=== PATIENT | male | born 1970 | race Caucasian/White ===

== ENCOUNTER → 2020-02-03 08:25 | Outpatient (BNVA) | payer OTHER, SELFPAY | PROVIDERS: PCP Internal Medicine; Visit Provider Anesthesiology | DX: M96.1 Postlaminectomy syndrome, not elsewhere classified (principal); M54.16 Radiculopathy, lumbar region; G89.4 Chronic pain syndrome; Z79.891 Long term (current) use of opiate analgesic | CPT/HCPCS: 99214 ==

== ENCOUNTER → 2020-02-17 09:36 | Outpatient (BNVA) | payer OTHER, SELFPAY | PROVIDERS: Visit Provider Anesthesiology | DX: M96.1 Postlaminectomy syndrome, not elsewhere classified (principal); G89.4 Chronic pain syndrome; M54.16 Radiculopathy, lumbar region; Z79.891 Long term (current) use of opiate analgesic | CPT/HCPCS: 99212 ==

== ENCOUNTER → 2020-03-16 09:39 | Outpatient (BNVA) | payer OTHER, SELFPAY | PROVIDERS: Visit Provider Anesthesiology | DX: M96.1 Postlaminectomy syndrome, not elsewhere classified (principal); M54.16 Radiculopathy, lumbar region; G89.4 Chronic pain syndrome; Z79.891 Long term (current) use of opiate analgesic | CPT/HCPCS: 99212 ==

== ENCOUNTER → 2020-04-13 09:34 | Outpatient (BNVA) | payer OTHER, SELFPAY | PROVIDERS: Visit Provider Anesthesiology | DX: M96.1 Postlaminectomy syndrome, not elsewhere classified (principal); M54.16 Radiculopathy, lumbar region; G89.4 Chronic pain syndrome; Z79.891 Long term (current) use of opiate analgesic | CPT/HCPCS: 99212 ==

== ENCOUNTER 2020-05-05 07:50 | Outpatient (RCR) | payer OTHER, SELFPAY | END 2020-06-11 23:55 | disposition home or self-care (01) | LOC: HO.PAOS 07:50 | PROVIDERS: Referring Provider Anesthesiology; Visit Provider Counselor | DX: F43.22 Adjustment disorder with anxiety (principal) | CPT/HCPCS: 90791 ==

== ENCOUNTER 2020-06-09 07:22 | Day surgery (SDC) | payer OTHER, SELFPAY ==
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
--- NOTE | ~2020-06-09 | FL_ITS ---
EXAMINATION: XR FLUOROSCOPY WITH IMAGES CLINICAL INFORMATION: Spinal stim trial COMPARISON: None. TECHNIQUE: Fluoroscopy performed by . Fluoroscopy time: 4.4 minutes DAP: 30.5 mGycm2 Images: 2 FINDINGS: FINDINGS: Intraoperative fluoroscopy was provided for use by Dr. Rollins. A radiologist was not present during imaging. Today's dictation is only for administrative purposes to document intraoperative fluoroscopy. FL/FL guidance in OR IMPRESSION: Intraoperative fluoroscopy provided for use by Dr. Rollins. Please see procedure note for details findings.
--- NOTE | 2020-06-09 07:39 | P.HPSUR_ITS ---
Pre-Procedural Eval Section B Chief Complaint: postlaminectomy syndrome Details of Present Illness: postlaminectomy syndrome Relevant Family History (Specify if Yes): No Relevant Social History: None Present Medications: see Short Stay Collaborative assessment Medical History: Significant History History of Previous Operations: Relevant previous surgery/procedure and date(s) Allergies: Allergies Allergy/AdvReac Type Severity Reaction Status Date / Time walnut Allergy unknown Verified 02/03/20 08:59 bee sting Allergy Unknown unknown Uncoded 02/03/20 08:59 Pineapple Flavor Allergy Unknown unknown Uncoded 02/03/20 08:59 Review of Systems Sugical H&P ROS: Negative: Constitution, Cardiovascular, Respiratory, Neurological, Psychiatric, Hem-Onc, Allergic/Immunologic, Gastrointestinal, Genitourinary, Musculoskeletal, Integumentary, Endocrine and Eyes/E ars/Nose/Throat Exam Surgical H&P Exam: Normal: HEENT, Normal: Heart, Normal: Lungs, Normal: Extremities, Normal: Abdomen, Normal: Skin and Normal: Neurological Plan Diagnosis/Plan: Unchanged I have reviewed the history and physical and performed a pertinent physical examination on my patient. No changes have occurred unless specified.
[2020-06-09 07:46] VITALS: BP 133/90; PULSE 79; RESP 16; TEMP 36.3; O2SAT 97; BMI 32.2
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
[2020-06-09 12:10] VITALS: BP 128/92; PULSE 75; RESP 14; TEMP 36.2; O2SAT 98
--- NOTE | 2020-06-09 12:15 | P.BOP_ITS ---
Brief Operative Note Date of Service: 06/09/20 Pre-op diagnosis: Postlaminectomy syndrome Post-op diagnosis: same Procedure: Trial of spinal cord stimulator [employer] Implants: None Surgeon: Keagan Rollins MD Anesthesia: MAC Estimated blood loss (mL): 7 Condition: stable Disposition: PACU
--- NOTE | 2020-06-09 12:16 | W.PM.OPN ---
Operative Note Operative Note Date of Service: 06/09/20 Narrative: Narrative: After obtaining informed consent the patient was brought to the operating room, HE was positioned prone on operating table, [employer] [employer] monitors were applied and patient was deeply sedated. The patient was taken inside of the operating room where she was positioned prone operating table. Time-out was performed delineating correct site, side, the nature of the procedure, patient's allergy, preoperative antibiotic if needed. All operating room staff was participating in OR time-out procedure. Patient's entire back was prepped with ChloraPrep twice and draped with full body fenestrated drape. Sterilely draped C-arm was brought over operating field and sqare picture of L1 L2 vertebrae as were demonstrated on the screen. Attention FIRST was concentrated on the left L1-L2 epidural interspace. The location of the projection of the right pedicle center of the L3 vertebra was found on the skin using C-arm. This location was injected with mixture of lidocaine 2% and Marcaine 0.5% 5 cc. After that 11 blade was used to make a meenakshi on the skin. Ten cm 14 gauge curved introducer epidural needle was inserted through the meenakshi and advanced to L1-L2 epidural interspace. The advancement of the needle was performed on anterior posterior and lateral views. Guitar wire and loss of resistance technique were used to locate epidural space. When guitar wire was spread in the epidural fashion, epidural lead was inserted through the skin and it was advanced to T8 position strictly at THE MIDLINE. After that location of the projection of the LEFT pedicle center of the L3 vertebra was found on the skin using C-arm. This location was injected with mixture of lidocaine 2% and Marcaine 0.5% 5 cc. After that 11 blade was used to make a meenakshi on the skin. Ten cm 14 gauge curved introducer epidural needle was inserted through the meenakshi and advanced to L1-L2 epidural interspace. The advancement of the needle was performed on anterior posterior and lateral views. Guitar wire and loss of resistance technique were used to locate epidural space. When guitar wire was spread in the epidural fashion, epidural lead was inserted through the needle and advanced to the T8 position slightly left to the midline. At this moment the patient was awaken and the epidural leads were connected to the testing device. The patient reported stimulation corresponding to his pain. After satisfactory position of the leads were established the needles were withdrawn, the stylette wires were removed from the epidural leads. The anchoring devices were dislodged on the leads and advanced to the level of the skin. The anchoring devices were sutured with two 0-0 silk sutures to the skin of the patient. The leads were connected to testing device. Bacitracin ointment was applied to the entrance point of bilateral needles. Sterile dressing was applied to the patient's back. The testing device was also glued to the patient's back. Upon completion of the procedure the patient was taken to PACU where HE recovered and UNEVENTFULLY, HE WENT HOME WITHOUT IMMEDIATE COMPLICATIONS.
[2020-06-09 12:25] VITALS: BP 126/86; PULSE 76; RESP 16; O2SAT 97
[2020-06-09 12:40] VITALS: BP 128/89; PULSE 75; RESP 16; O2SAT 97
== END 2020-06-09 13:48 | disposition home or self-care (01) ==
PROVIDERS: Visit Provider Anesthesiology
PROC: (CPT 63650; principal; 2020-06-09 09:00)
DX: M96.1 Postlaminectomy syndrome, not elsewhere classified (principal); M54.16 Radiculopathy, lumbar region; G89.4 Chronic pain syndrome; Z79.891 Long term (current) use of opiate analgesic; I10 Essential (primary) hypertension; F32.9 Major depressive disorder, single episode, unspecified; Z87.828 Personal history of other (healed) physical injury and trauma
CPT/HCPCS: 63650 ×2; C1778; C1897; J0690; J1100; J2250; J2405; J3010

== ENCOUNTER → 2020-06-15 12:54 | Outpatient (BNVA) | payer OTHER, SELFPAY | PROVIDERS: Visit Provider Anesthesiology | DX: M96.1 Postlaminectomy syndrome, not elsewhere classified (principal); M54.16 Radiculopathy, lumbar region; G89.4 Chronic pain syndrome; Z79.891 Long term (current) use of opiate analgesic | CPT/HCPCS: 99212 ==

== ENCOUNTER 2025-01-28 14:31 | Outpatient (AMB) | payer OTHER, SELFPAY ==
--- OUTSIDE RECORDS SUMMARY | 2025-01-27 13:30 | XMS_ITS | Encounter Summary ---
Author Organization [employer] Address [address] [place] [address] Care Team Providers Care Millwright Apprentice Name Role Phone Nevin Cox Primary Care Provider + Reason for Visit * Reason Comments 48 Hour Holter Monitor * Cardiac Stress Testing (Routine) - Authorized Specialty Diagnoses / Procedures Referred By Contac t Referred To Contact Cardiology Diagnoses Syncope, unspecified syncope type Procedures Cardiac holter monitor (<= 48 hours) PA ECG EXTERNAL UP TO 48 HOURS RECORDING PA ECG EXTERNAL < 48 HOURS CONTINUOUS RECORDING/STORAGE R&I BY A PHYS/QHP PA EXTERNAL ECG UP TO 48 HRS INCL RECORDING SCANNING ANLYS W REPORT David Obregon MD Phone: tel: fax: [facility] Referral ID Status Reason Start Date Expiration Date V isits Requested Visits Authorized [id number] Authorized 01/12/2025 01/12/2026 1 1 Encounter Details Date Type Department Care Team (Latest Contact Info) Description 01/27/2025 1:30 PM EDT Ancillary Procedure [facility] - [address] [place] [address] Syncope, unspecified syncope type Social History Tobacco Use Types Packs/Day Years Used Date Smoking Tobacco: Former Smokeless Tobacco: Never Alcohol Use Standard Drinks/Week Comments Yes 0 (1 standard drink = 0.6 oz pur e alcohol) twice per month couple drinks Housing Instability Answer Date Recorde d Are you worried that in the next 2 months you may not have stable housing? Yes 01/03/2025 Food Access & Nutrition Answer Date Rec orded Do you have access to a vari ety of food including fruits and vegetables? Yes 01/03/2025 Access to Healthcare Answer Date Record ed Within the last 3 months, ho w many times did you visit the emergency department for your medical care? 2 01/03/2025 Health Literacy Answer Date Recorded How often do you need to hav e someone help you when you read instructions, pamphlets, or other written material from your doctor or pharmacy? Rarely 01/03/2025 Caregiver: How often do you need to have someone help you when you read instructions, pamphlets, or other written material from your doctor or pharmacy? Not on file 01/03/2025 Financial Risk Answer Date Recorded How hard is it for you to pa y for the very basics like food, housing, medical care, and air conditioning / heating? Hard 01/03/2025 Transportation Answer Date Recorded Has the lack of transportati on kept you from meetings, work, or from getting things needed for daily living? Yes Has the lack of transportati on kept you from medical appointments or from getting medications? Yes 01/03/2025 Social Isolation Answer Date Recorded How often do you feel lonely or isolated from th ose around you? Often 01/03/2025 Food Risk Answer Date Recorded Within the past 12 months we worried whether our food would run out before we got money to buy more. Often true 01/03/2025 Within the past 12 months th e food we bought just didn't last and we didn't have money to get more. Often true 01/03/2025 Dependent Care Answer Date Recorded Do you need help finding or paying for care for your loved ones. For example, child care coordinator or elderly care for an older adult? No 01/03/2025 Education Answer Date Recorded Do you think completing more education or training, like finishing a GED, going to college, or learning a trade, would be helpful for you? No 01/03/2025 Employment and Income Answer Date Recor ded During the last four weeks, have you been actively looking for work? Yes 01/03/2025 Living Situation Answer Date Recorded What is your living situation? 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 on file Not on file Not on file documented as of this encounter Plan of Treatment Upcoming Encounters Date Type Department Care Team (Late st Contact Info) Description 02/01/2025 9:00 AM EDT Ancillary Procedure [facility] - [address] [place] [address] Pending Results Name Type Priority Associated Diagnoses Date /Time Cardiac holter monitor (<= 48 hours) Cardiac Services Routine Syncope, unspecified syncope type 01/27/2025 1:16 PM EDT documented as of this encounter Visit Diagnoses Diagnosis Syncope, unspecified syncope type documented in this encounter Additional Health Concerns Assessment Noted Time PHQ-9 Depression Total Score: 19 025 4:24 PM EDT documented as of this encounter Care Teams Millwright Apprentice Relationship Specialty Start Date End Date Nevin Cox PA [address] [place] [address] PCP - General 11/06/23 documented as of this encounter
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
[2025-01-28 14:42] VITALS: BP 175/109; PULSE 106; O2SAT 97; BMI 31.8
[2025-01-28 14:44] VITALS: BP 170/103
--- OUTSIDE RECORDS SUMMARY | 2025-01-28 17:01 | XMS_ITS | Encounter Summary ---
Author Organization 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 Name Role Phone Pcp, Not Required Primary Care Provider Unavaila ble Encounter Details Date Type Department Care Team (Late st Contact Info) Description 05/14/2020 Ophth Exam [facility] [place] [facility] [address] [place] [address] Vasyl Alexandra MD [email or web address] Social History Tobacco Use Types Packs/Day Years Used Date Smoking Tobacco: Former Cigarettes Q uit: 05/14/1997 Smokeless Tobacco: Never Alcohol Use Standard Drinks/Week Comments Not Currently 0 (1 standard drink = 0.6 oz pur e alcohol) Sex and Gender Information Value Date Recorded Sex Assigned at Not on file Legal Sex Male 11:47 AM EST Gender Identity Not on file Sexual Orientation Not on file documented as of this encounter Functional Status * Calculated C-SSRS Risk Score (Lifetime/Recent) Answer Date of Assessment Author No Risk Indicated 05/14/2020 12:13 PM Atiya Murcia RN * Archer Suicide Severity Rating Scale (Screener/Recent Self-Report) Question Answer Date of Assessment Author 1. Wish to be (Past 1 Month) No 05/14/2020 12:13 PM Brad Velasco RN 2. Non-Specific Active Suici dulce maria Thoughts (Past 1 Month) No 05/14/2020 12:13 PM Wayne Velasco RN 6. Suicidal Behavior (Lifetime) No 12:13 PM EST Fabiana, Atiya, RN documented as of this encounter Plan of Treatment Not on file documented as of this encounter Visit Diagnoses Not on filedocumented in this encounter Care Teams Welding Pantograph Machine Operator Relationship Specialty Start Date End Date Pcp, Not Required [address] [place] [id number] PCP - General 05/14/20 documented as of this encounter Additional Source Comments The information contained in this document represents components of the legal health record. It is not the complete legal health record.[facility]
--- OUTSIDE RECORDS SUMMARY | 2025-01-28 17:01 | XMS_ITS | Clinical Summary ---
Author Organization [facility] Address [address] [place] [phone] Care Team Providers Care Store Stock Associate Name Role Phone Galindo Jimenez MD Primary Care Provider Unavailab le Social History Tobacco Use Types Packs/Day Years Used Date Smoking Tobacco: Never Assessed Sex and Gender Information Value Date Recorded Sex Assigned at Not on file Gender Identity Not on file Sexual Orientation Not on file Job Start Date Occupation Industry Not on file Not on file Not on file Plan of Treatment Health Maintenance Due Date Last Done Comments Hepatitis B Vaccines (1 of 3 - 3-dose series) 1968 Hepatitis C Screening 1968 COVID-19 Vaccine (#1) 02/03/1969 Depression Screening 1980 Preventative Health Evaluation 1986 DTap / Tdap / Td (1 - Tdap) 08/05/1987 Colon Cancer Screening (Colonoscopy) 2013 Shingrix-Zoster Vaccine (1 of 2) 2018 Influenza Vaccine (#1) 2024 04/05/2019 Pneumococcal Vaccine Aged Out No long er eligible based on patient's age to complete this topic RSV Ped < 20 months Aged Out No longe r eligible based on patient's age to complete this topic Care Teams Store Stock Associate Relationship Specialty Start Date End Date Galindo Jimenez MD PCP - General Internal Medicine 10/13/23
--- OUTSIDE RECORDS SUMMARY | 2025-01-28 17:01 | XMS_ITS | Clinical Summary ---
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 12 capsule 1 06/19/19 25 Active doxycycline (ADOXA) 50 mg tablet Take 1 tablet (50 mg total) by mouth 2 (two) times a day. Take with a full glass of water and do not lie down for at least 30 minutes after. Active cyclobenzaprine (FLEXERIL) 10 mg tabletIndication s:Chronic left-sided low back pain with left-sided sciatica Take 1 tablet (10 mg total) by mouth at bedtime as needed for muscle spasms. 30 tablet 01/05/20 25 Active ARIPiprazole (ABILIFY) 10 mg tabletIndication s:Anxiety and depression Take 1 tablet (10 mg total) by mouth at bedtime. 90 tablet 01/05/20 25 Active prazosin (MINIPRESS) 2 mg capsuleIndicatio ns:Primary hypertension,Anx iety and depression Take 1 capsule (2 mg total) by mouth at bedtime. 90 capsule 1 01/05/20 25 Active sertraline (ZOLOFT) 50 mg tabletIndication s:Anxiety and depression Take 1 tablet (50 mg total) by mouth 1 (one) time each day in the morning. 90 tablet 1 01/05/20 25 Active amLODIPine (NORVASC) 5 mg tablet Take 1 tablet (5 mg total) by mouth 1 (one) time each day. 30 each 11 01/13/20 25 026 Active predniSONE (DELTASONE) 20 mg tabletIndication s:Chronic left-sided low back pain with left-sided sciatica Take 2 tablets (40 mg total) by mouth 1 (one) time each day for 5 days. 10 each 01/05/20 25 025 chlorthalidone (HYGROTON) 25 mg tabletIndication s:Primary hypertension Take 1 tablet (25 mg total) by mouth 1 (one) time each day. 90 each 01/05/20 25 025 Discontinued prazosin (MINIPRESS) 2 mg capsule Take 1 capsule (2 mg total) by mouth at bedtime. Discontinued(Re order) ARIPiprazole (ABILIFY) 10 mg tablet Take 1 tablet (10 mg total) by mouth at bedtime. Discontinued(Re order) sertraline (ZOLOFT) 50 mg tablet Take 1 tablet (50 mg total) by mouth 1 (one) time each day in the morning. Discontinued(Re order) Active Problems Problem Noted Date Diagnosed Date Syncope 01/11/2025 Assessment & Plan (01/12/2025 12:54 PM EDT): Is unclear whether he had syncope or seizure. Passing out always happen when he was in standing position and the 1 episode was associate with severe dehydration and ROSE, cocaine use and marijuana use. He is relatively young the chance of arrhythmia is relatively low. Cardiac exam is unremarkable. I will schedule a Holter monitor and echocardiogram. I will discontinue chlorthalidone to avoid dehydration. He needs to stay away from drugs, especially cocaine. Orders: Cardiac holter monitor (<= 48 hours); Future Transthoracic echocardiogram (TTE) complete with PRN contrast, bubble, strain, and 3D order panel; Future Anxiety and depression 01/04/2025 Chronic left-sided low back pain with left-sided sciatica 06/30/2019 Obesity (BMI 30-39.9) 06/30/2019 Degenerative disc disease, lumbar 04/05/2019 HTN (hypertension) 04/05/2019 Assessment & Plan (01/12/2025 12:54 PM EDT): I will start low-dose amlodipine and discontinue hydrochlorothiazide. 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 04/05/2019 Overview (03/19/2024): s/p surgery- following with Dr Finnegan, on Gabapentin Vitamin D deficiency Overview (06/18/2024): DX:Vitamin D deficiency Encounters Date Type Department Care Team Description 01/27/2025 1:30 PM EDT Ancillary Procedure [facility] [address] [facility] [address] [place] [phone] Syncope, unspecified syncope type 01/12/2025 10:20 AM EDT Office Visit [facility] [address] [facility] [address] [place] [phone] David Obregon MD Syncope, unspecified syncope type (Primary Dx); Primary hypertension 01/04/2025 4:00 PM EDT Office Visit [facility] [place] [address] [place] [phone] Nevin Cox PA Chronic left-sided low back pain with left-sided sciatica (Primary Dx); Primary hypertension; Anxiety and depression 12/03/2024 8:59 PM EDT - 12/04/2024 2:08 AM EDT Emergency [facility] Emergency [address] [place] [phone] Jesús Arce MD Syncope and collapse (Primary Dx) Discharge Disposition: Left Against Medical Advice 11/23/2024 Telephone [facility] [address] [place] [address] David Obregon MD 11/23/2024 Telephone [facility] [place] [address] [place] [phone] Nevin Cox PA 11/21/2024 4:13 PM EDT - 11/21/2024 5:59 PM EDT Emergency [facility] Emergency [address] [place] [phone] Zabrina Alvarenga MD Discharge Disposition: Left Against Medical Advice 11/08/2024 11:50 AM EDT Anesthesia Event [facility] [address] [place] [phone] Tracey Vazuqez NM 11/08/2024 11:47 AM EDT - 11/08/2024 11:59 PM EDT Hospital Encounter [facility] [address] [place] [phone] Rajendra Little MD Radiculopathy, lumbar region Discharge Disposition: Home or Self Care 11/08/2024 3:25 AM EDT - 11/08/2024 11:59 PM EDT Hospital Encounter [facility] Xray [address] [place] [phone] Pain Discharge Disposition: Home or Self Care from Last 3 Months Immunizations Immunization Administration Dates Next Due Influenza Quadravalent, MDCK , 0.5ml, preservative free (Flucelvax) 6mo and older 04/05/2019 Surgical History Surgery Date Site/Laterality Comments HAND SURGERY Left PROCEDURE: HISTORICAL HAND SURGERY; COMMENT: -1991 s/p fall through security glass BACK SURGERY PROCEDURE: HISTORICAL BACK SURGERY; COMMENT: lumbar fusion x 2 -2003 in [place], [place] while incarcerated Medical History Medical History Date Comments Anxiety and depression DX:Anxiet y and depression HTN (hypertension) DX:HTN (hyper tension) Bipolar disorder (CMS/HCC V24, CMS/HCC V28) DX:Bipolar disorder (HCC) Vitamin D deficiency DX:Vitamin D deficiency Chronic back pain Family History Relation Name Status Comments Father Alive Mother Alive Social History Tobacco Use Types Packs/Day Years [...] your loved ones. For example, child care provider or elderly care for an older adult? 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 on file Not on file Not on file Obstetrics History Last Filed Vital Signs Vital Sign Reading Time Taken Comments Blood Pressure 140/86 01/12/2025 10:57 AM EDT Pulse 96 01/12/2025 10:57 AM EDT Temperature 36.2 C (97.1 F) 01/04/2025 3:54 PM EDT Respiratory Rate 20 12/04/2024 1:35 AM EDT Oxygen Saturation 97% 01/12/2025 10:06 AM EDT Inhaled Oxygen Concentration - - Weight 104 kg (229 lb) 01/12/2025 10:06 AM EDT Height 181.6 cm (5' 11.5 ) 01/12/2025 10:06 AM E DT Body Mass Index 31.5 01/12/2025 10:06 AM EDT Plan of Treatment Upcoming Encounters Date Type Department Care Team (Late st Contact Info) Description 02/01/2025 9:00 AM EDT Ancillary Procedure [facility] [address] [place] [address] Health Maintenance Due Date Last Done Comments DTaP,Tdap,and Td Vaccines (1 - Tdap) 08/05/1987 Hepatitis B Vaccines (1 of 3 - 19+ 3-dose series) 08/05/1987 Pneumococcal Vaccine: 50+ Years (1 of 1 - PCV) 2018 Zoster Vaccines (1 of 2) 2018 Colorectal Cancer Screening: Stool Based Tests (FOBT/FIT) 05/13/2023 Colorectal Cancer Screening: Colonoscopy 10/06/2024 10/07/2019, 10/07/2019 COVID-19 Vaccine (1 - 2023-2 5 season) 2024 Influenza Vaccine (#1) 2024 04/05/2019 Hypertension/CHF/CAD Annual BMP Blood Test 12/03/2025 12/03/2024, 06/15/2024, 07/13/2019 Social Influencers of Health Screening 01/03/2026 01/03/2025 Cholesterol Screening (Lipid Panel) 06/15/2029 06/15/2024, 04/05/2019 RSV Immunization Adult Patients (1 - 1-dose 75+ series) 08/05/2043 HIV Screening Completed 06/15/2024 Hepatitis C Screening Completed 06/15/2024 Depression Screening Completed 01/03/2025 HIB Vaccines Aged Out No longer eligi ble based on patient's age to complete this topic HPV Vaccines Aged Out No longer eligi ble based on patient's age to complete this topic Hepatitis A Vaccines Aged Out No long er eligible based on patient's age to complete this topic IPV Vaccines Aged Out No longer eligi ble based on patient's age to complete this topic MMR Vaccines Aged Out No longer eligi ble based on patient's age to complete this topic Meningococcal ACWY Vaccine Aged Out N o longer eligible based on patient's age to complete this topic Meningococcal B Vaccine Aged Out No l onger eligible based on patient's age to complete this topic RSV Immunization Patients Under 20 months Aged Out No longer eligible b ased on patient's age to complete this topic Varicella Vaccines Aged Out No longer eligible based on patient's age to complete this topic Procedures Procedure Name Priority Date/Time Associated Diagnosis Comments ECG ANNOTATED 12/06/2024 URINALYSIS WITH REFLEX MICROSCOPIC STAT 12/04/2024 1:40 AM EDT DRUG ABUSE SCREEN 8A PANEL, URINE STAT 12/04/2024 1:40 AM EDT URINALYSIS WITH REFLEX MICROSCOPIC STAT 12/04/2024 1:40 AM EDT ETHANOL STAT 12/03/2024 10:08 PM EDT CBC WITH AUTO DIFFERENTIAL STAT 12/03/2024 10:08 PM EDT TROPONIN I HIGH SENSITIVITY STAT 12/03/2024 10:08 PM EDT LACTATE STAT 12/03/2024 10:08 PM EDT B-TYPE NATRIURETIC PEPTIDE STAT 12/03/2024 10:08 PM EDT MAGNESIUM STAT 12/03/2024 10:08 PM EDT ACTIVATED PARTIAL THROMBOPLASTIN TIME STAT 12/03/2024 10:08 PM EDT PROTHROMBIN TIME WITH INR STAT 12/03/2024 10:08 PM EDT CBC AND DIFFERENTIAL STAT 12/03/2024 10:08 PM EDT COMPREHENSIVE METABOLIC PANEL STAT 12/03/2024 10:[address] HEAD WO CONTRAST STAT 12/03/2024 9 :44 PM EDT ECG 12-LEAD STAT 12/03/2024 9:37 PM EDT XR CHEST 1 VIEW STAT 12/03/2024 9:34 PM EDT XR FLUORO UP TO 1 HOUR Routine 1:14 PM EDT Pain INJECTION EPIDURAL CAUDAL WITH GUIDANCE Routine 11/08/2024 12:00 PM EDT Postlaminectomy syndrome, not elsewhere classified HEPATITIS C ANTIBODY Routine 06/15/2024 3:26 PM EST Routine physical examination HIV 1, 2 ANTIBODY, P24 ANTIGEN WITH REFLEX TO DIFFERENTIATION Routine 06/15/2024 3:26 PM EST Routine physical examination LIPID PANEL WITH REFLEX TO DIRECT LDL Routine 06/15/2024 3:26 PM EST Routine physical examination HM COLONOSCOPY Routine 10/07/2019 from Last 3 Months or Most Recently Relevant to Health Maintenance Results * ECG-Annotated (12/06/2024) us Provider Onbase MD ECG ORDERABLES Final Result * (ABNORMAL) Urinalysis with reflex microscopic (12/04/2024 1:40 AM EDT) Specific [place] Urine 1.014 1.003 - 1.030 LAB URINALYSIS - AUTOMATED METHOD 12/04/2024 3:44 AM [facility] pH, Urine 5.5 5.0 - 8.0 pH LAB URINALYSIS - AUTOMATED METHOD 12/04/2024 3:44 AM [facility] Leukocytes, Urine Negative Negative LAB URINALYSIS - AUTOMATED METHOD 12/04/2024 3:44 AM [facility] Nitrite, Urine Negative Negative LAB URINALYSIS - AUTOMATED METHOD 12/04/2024 3:44 AM [facility] Protein, Urine 30(A) <=Trace mg/dL LAB URINALYSIS - AUTOMATED METHOD 12/04/2024 3:44 AM [facility] Glucose, Urine Negative Negative mg/dL LAB URINALYSIS - AUTOMATED METHOD 12/04/2024 3:44 AM [facility] Ketones, Urine Trace(A) Negative mg/dL LAB URINALYSIS - AUTOMATED METHOD 12/04/2024 3:44 AM [facility] Urobilinogen , Urine 0.2 0.2 - 1.0 mg/dL LAB URINALYSIS - AUTOMATED METHOD 12/04/2024 3:44 AM [facility] Bilirubin, Urine Negative Negative LAB URINALYSIS - AUTOMATED METHOD 12/04/2024 3:44 AM [facility] Blood, Urine Negative Negative LAB URINALYSIS - AUTOMATED METHOD 12/04/2024 3:44 AM EDT [facility] RBC, Urine 5.0(H) 0 - 4 /HPF LAB URINALYSIS - AUTOMATED METHOD 12/04/2024 3:44 AM [facility] WBC, Urine 4.8(H) 0 - 4 /HPF LAB URINALYSIS - AUTOMATED METHOD 12/04/2024 3:44 AM [facility] Squamous Epithelial, Urine 46 0 - 60 /LPF LAB URINALYSIS - AUTOMATED METHOD 12/04/2024 3:44 AM [facility] Bacteria, Urine Negative Negative /HPF LAB URINALYSIS - AUTOMATED METHOD 12/04/2024 3:44 AM [facility] Hyaline Casts, Urine 21.3(H) 0 - 3 /LPF LAB URINALYSIS - AUTOMATED METHOD 12/04/2024 3:44 AM [facility] Other Casts, Urine Rare white blood cell casts /LPF 12/04/2024 3:44 AM [facility] Urine Urine specimen obtained by clean catch procedure / Unknown Non-blood Collection / Unknown 12/04/2024 1:40 AM EDT 12/04/2024 2:33 AM EDT us Jesús Arce MD LAB URINE ORDERABLES Edited Resu lt - Final [facility] [address] [place] [address], * (ABNORMAL) Drug abuse screen 8a panel, urine (12/04/2024 1:40 AM EDT) Amphetamine Screen, Ur Negative Negative LAB CHEMISTRY METHOD 3:07 AM EDT [facility] Comment:Certain OTC medicati ons containing ephedrine, phenylephrine, pseudoephedrine and phenylpropanolamine can cause false positive results. Barbiturate Screen, Ur Negative Negative LAB CHEMISTRY METHOD 5 3:07 AM EDT [facility] Benzodiazepine Screen, Ur Negative Negative LAB CHEMISTRY METHOD 5 3:07 AM [facility] Cocaine Screen, Ur Positive(A ) Negative LAB CHEMISTRY METHOD 5 3:07 AM T [facility] Opiate Screen, Ur Negative Negative LAB CHEMISTRY METHOD 5 3:07 AM [facility] Cannabinoid (THC) Screen, Ur Positive(A ) Negative LAB CHEMISTRY METHOD 5 3:07 AM T [facility] Comment:Specimens from patie nts taking pantoprazole sodium (Protonix) have been shown to produce false positive results. Oxycodone Screen, Ur Negative Negative LAB CHEMISTRY METHOD 5 3:07 AM [facility] Fentanyl, Ur Negative Negative LAB CHEMISTRY METHOD 5 3:07 AM [facility] Urine Urine specimen obtained by clean catch procedure / Unknown Non-blood Collection / Unknown 12/04/2024 1:40 AM EDT 12/04/2024 2:33 AM EDT Narrative [facility] - 12/04/2024 3:07 AM EDT Assay cutoffs: Amphetamines 1000 ng/mL Barbiturates 200 ng/mL Benzodiazepines 200 ng/mL Cocaine 300 ng/mL Fentanyl 1 ng/mL Opiates 300 ng/mL Oxycodone 100 ng/mL THC 50 ng/mL Semi-quantitative assay for screening purposes only. Unconfirmed screening result should not be used for non-medical purposes. *ALTERNATE METHOD CONFIRMATION DONE UPON REQUEST ONLY* us Jesús Arce MD LAB URINE ORDERABLES Final Resul t [facility] [address] [place] [address], * Troponin I High Sensitivity (12/03/2024 10:08 PM EDT) [facility] High Sensitivity Troponin I 12 <=79 ng/L LAB CHEMISTRY METHOD 12/03/2024 10:57 PM EDT [facility] Blood Venous blood specimen / Unknown Venipuncture / Unknown 12/03/2024 10:08 PM EDT 12/03/2024 10:30 PM EDT Narrative [facility] - 12/03/2024 10:57 PM EDT High levels of biotin in samples may falsely decrease hsTroponin values. Use caution when interpreting hsTroponin results in patients taking biotin who exhibit renal impairment (eGFR <60) or in patients taking more than 20 mg/day of biotin. us Jesús Arce MD LAB BLOOD ORDERABLES Final Resul t [facility] [address] [place] [address], * (ABNORMAL) CBC auto differential (12/03/2024 10:08 PM EDT) [facility] WBC 14.5(H) 4.8 - 10.8 K/mcL LAB HEMETOLOGY METHOD 12/03/2024 10:36 PM EDT [facility] RBC 4.90 4.50 - 5.50 M/mcL LAB HEMETOLOGY METHOD 12/03/2024 10:36 PM EDT [facility] Hemoglobin 14.3 13.5 - 17.5 g/dL LAB HEMETOLOGY METHOD 12/03/2024 10:36 PM EDT [facility] Hematocrit 43.6 42.0 - 54.0 % LAB HEMETOLOGY METHOD 12/03/2024 10:36 PM EDT [facility] MCV 88.4 79.0 - 98.0 FL LAB HEMETOLOGY METHOD 12/03/2024 10:36 PM EDT [facility] MCH 29.0 27.0 - 32.0 pcg LAB HEMETOLOGY METHOD 12/03/2024 10:36 PM EDT [facility] MCHC 32.8 32.0 - 37.0 g/dL LAB HEMETOLOGY METHOD 12/03/2024 10:36 PM EDT [facility] RDW 12.6 11.0 - 15.0 % LAB HEMETOLOGY METHOD 12/03/2024 10:36 PM EDT [facility] Platelets 294 130 - 400 K/mcL LAB HEMETOLOGY METHOD 12/03/2024 10:36 PM T [facility] MPV 9.3 7.0 - 11.0 FL LAB HEMETOLOGY METHOD 12/03/2024 [facility] NRBC 0.0 <1.0 % LAB HEMETOLOGY METHOD 12/03/2024 10:36 PM [facility] NRBC Absolute 0.00 <0.10 K/mcL LAB HEMETOLOGY METHOD 12/03/2024 10:36 PM [facility] Neutrophils Relative 83.7 % LAB HEMETOLOGY METHOD 12/03/2024 10:36 PM [facility] Lymphocytes Relative 7.5 % LAB HEMETOLOGY METHOD 12/03/2024 10:36 PM [facility] Monocytes Relative 7.9 % LAB HEMETOLOGY METHOD 12/03/2024 10:36 PM [facility] Eosinophils Relative 0.1 % LAB HEMETOLOGY METHOD 12/03/2024 10:36 PM [facility] Basophils Relative 0.2 % LAB HEMETOLOGY METHOD 12/03/2024 10:36 PM [facility] Immature Granulocytes Relative 0.6 % LAB HEMETOLOGY METHOD 12/03/2024 10:36 PM [facility] Neutrophils Absolute 12.14(H) 1.50 - 7.00 K/[facility] LAB HEMETOLOGY METHOD 12/03/2024 10:36 PM EDT [facility] Lymphocytes Absolute 1.09 1.00 - 5.00 K/[facility] LAB HEMETOLOGY METHOD 12/03/2024 10:36 PM EDT [facility] Monocytes Absolute 1.15(H) 0.20 - 1.00 K/[facility] LAB HEMETOLOGY METHOD 12/03/2024 10:36 PM EDT [facility] Eosinophils Absolute 0.02 0.00 - 0.50 K/[facility] LAB HEMETOLOGY METHOD 12/03/2024 10:36 PM EDT [facility] Basophils Absolute 0.03 0.00 - 0.20 K/[facility] LAB HEMETOLOGY METHOD 12/03/2024 10:36 PM EDT [facility] Immature Granulocytes Absolute 0.09(H) 0.00 - 0.03 K/[facility] LAB HEMETOLOGY METHOD 12/03/2024 10:36 PM EDT [facility] Blood Venous blood specimen / Unknown Venipuncture / Unknown 12/03/2024 10:08 PM EDT 12/03/2024 10:30 PM EDT Jesús Arce MD LAB BLOOD ORDERABLES Final Resul t [facility] [address] [place] [address], * APTT (12/03/2024 10:08 PM EDT) aPTT 28.7 24.1 - 39.3 sec LAB COAGULATION METHOD 12/03/2024 10:44 PM EDT [facility] Blood Venous blood specimen / Unknown Venipuncture / Unknown 12/03/2024 10:08 PM EDT 12/03/2024 10:30 PM EDT us Jesús Arce MD LAB BLOOD ORDERABLES Final Resul t Performing Organization Address [facility]/ZIP Co de Phone Number [facility] [address] [place] [address], [place] [phone] * Protime-INR (12/03/2024 10:08 PM EDT) [facility] Protime 12.4 10.6 - 13.9 sec LAB COAGULATION METHOD 12/03/2024 10:44 PM EDT [facility] INR 1.0 LAB COAGULATION METHOD 12/03/2024 10:44 PM EDT [facility] Blood Venous blood specimen / Unknown Venipuncture / Unknown 12/03/2024 10:08 PM EDT 12/03/2024 10:30 PM EDT us Jesús Arce MD LAB BLOOD ORDERABLES Final Resul t Performing Organization Address [facility] Co de Phone Number [facility] [address] [place] [address], [place] [phone] * B-Type Natriuretic Peptide (BNP) (12/03/2024 10:08 PM EDT) [facility] BNP 4 <=100 pcg/mL LAB CHEMISTRY METHOD 12/03/2024 11:04 PM EDT [facility] Blood Venous blood specimen / Unknown Venipuncture / Unknown 12/03/2024 10:08 PM EDT 12/03/2024 10:30 PM EDT us Jesús Arce MD LAB BLOOD ORDERABLES Final Resul t Performing Organization Address City/[facility]/ZIP Co de Phone Number [facility] [address] [place] [address], [place] [phone] * (ABNORMAL) Magnesium (12/03/2024 10:08 PM EDT) [facility] Magnesium 1.8(L) 1.9 - 2.6 mg/dL LAB CHEMISTRY METHOD 12/03/2024 10:57 PM EDT [facility] Blood Venous blood specimen / Unknown Venipuncture / Unknown 12/03/2024 10:08 PM EDT 12/03/2024 10:30 PM EDT us Jesús Arce MD LAB BLOOD ORDERABLES Final Resul t Performing Organization Address City/[facility]/ZIP Co de Phone Number [facility] [address] [place] [address], [place] [phone] * Lactate (12/03/2024 10:08 PM EDT) Lactate 1.1 0.4 - 2.0 mmol/L LAB CHEMISTRY METHOD 12/03/2024 10:56 PM EDT [facility] Blood Venous blood specimen / Unknown Venipuncture / Unknown 12/03/2024 10:08 PM EDT 12/03/2024 10:29 PM EDT us Jesús Arce MD LAB BLOOD ORDERABLES Final Resul t Performing Organization Address [facility] Co de Phone Number [facility] [address] [place] [address], [place] [phone] * Ethanol (12/03/2024 10:08 PM EDT) Ethanol Level <3 0 - 10 mg/dL LAB CHEMISTRY METHOD 12/03/2024 10:57 PM EDT [facility] Blood Venous blood specimen / Unknown Venipuncture / Unknown 12/03/2024 10:08 PM EDT 12/03/2024 10:30 PM EDT us Jesús Arce MD LAB BLOOD ORDERABLES Final Resul t Performing Organization Address City/[facility]/ZIP Co de Phone Number [facility] [address] [place], [place] [address] [phone] * (ABNORMAL) Comprehensive Metabolic Panel (CMP) (12/03/2024 10:08 PM EDT) [facility] Sodium 138 133 - 145 mmol/L LAB CHEMISTRY METHOD 12/03/2024 10:58 PM [facility] Potassium 4.0 3.5 - 5.5 mmol/L LAB CHEMISTRY METHOD 12/03/2024 10:58 PM [facility] Chloride 106 96 - 110 mmol/L LAB CHEMISTRY METHOD 12/03/2024 10:58 PM [facility] CO2 25 21 - 32 mmol/L LAB CHEMISTRY METHOD 12/03/2024 10:58 PM [facility] Anion Gap 7 3 - 11 LAB CHEMISTRY METHOD 12/03/2024 10:58 PM [facility] Glucose 98 70 - 100 mg/dL LAB CHEMISTRY METHOD 12/03/2024 10:58 PM [facility] BUN 17 5 - 25 mg/dL LAB CHEMISTRY METHOD 12/03/2024 10:58 PM [facility] Creatinine 2.38(H) 0.70 - 1.30 mg/dL LAB CHEMISTRY METHOD 12/03/2024 10:58 PM [facility] eGFR 31(L) >=60 mL/min/1. 73m2 LAB CHEMISTRY METHOD 12/03/2024 10:58 PM [facility] Comment:Calculation based on the Chronic Kidney Disease Epidemiology Collaboration (CKD-EPI) equation refit without adjustment for race. BUN/Creatinine Ratio 7.1 LAB CHEMISTRY METHOD 12/03/2024 10:58 PM [facility] Calcium 9.0 8.5 - 10.5 mg/dL LAB CHEMISTRY METHOD 12/03/2024 10:58 PM [facility] AST (SGOT) 28 10 - 42 unit/L LAB CHEMISTRY METHOD 12/03/2024 10:58 PM [facility] ALT (SGPT) 37 10 - 60 unit/L LAB CHEMISTRY METHOD 12/03/2024 10:58 PM EDT [facility] Alkaline Phosphatase 91 42 - 121 unit/L LAB CHEMISTRY METHOD 12/03/2024 10:58 PM EDT [facility] Total Protein 7.2 6.0 - 8.0 g/dL LAB CHEMISTRY METHOD 12/03/2024 10:58 PM EDT [facility] Albumin 3.9 3.2 - 5.0 g/dL LAB CHEMISTRY METHOD 12/03/2024 10:58 PM EDT [facility] Total Bilirubin 0.6 0.0 - 1.4 mg/dL LAB CHEMISTRY METHOD 12/03/2024 10:58 PM EDT [facility] Blood Venous blood specimen / Unknown Venipuncture / Unknown 12/03/2024 10:08 PM EDT 12/03/2024 10:30 PM EDT us Jesús Arce MD LAB BLOOD ORDERABLES Final Resul t [facility] [address] [place] [address], * CT Head wo Contrast (12/03/2024 9:44 PM EDT) Anatomical Region Laterality Modality Head and Neck Computed Tomogra phy 12/03/2024 10:2 3 PM EDT Impressions 12/03/2024 10:23 PM EDT 1. No acute intracranial findings. This document has been electronically signed by: Yony Quinteros MD on 12/03/2024 22:23:11 Narrative 12/03/2024 10:23 PM EDT INDICATION: Mental status change, unknown cause CT head without contrast Comparison: None provided Findings: No intra-axial mass, midline shift, hydrocephalus, or acute hemorrhage. Mild parenchymal atrophy without significant white matter disease. The visualized paranasal sinuses and mastoid air cells are normal. The orbits are within normal limits. There is no acute fracture. Procedure Note Yony Quinteros MD - 12/03/2024 INDICATION: Mental status change, unknown cause CT head without contrast Comparison: None provided Findings: No intra-axial mass, midline shift, hydrocephalus, or acute hemorrhage. Mild parenchymal atrophy without significant white matter disease. The visualized paranasal sinuses and mastoid air cells are normal. The orbits are within normal limits. There is no acute fracture. IMPRESSION: 1. No acute intracranial findings. This document has been electronically signed by: Yony Quinteros MD on 12/03/2024 22:23:11 Jesús Arce MD IMG CT PROCEDURES Final Result * 12-Lead ECG (12/03/2024 9:37 PM EDT) Ventricular Rate ECG 124 BPM GEMUSE Atrial Rate 124 BPM GEMUSE P-R Interval 142 ms GEMUSE QRS Duration 74 ms GEMUSE Q-T Interval 306 ms GEMUSE QTc 439 ms GEMUSE P Wave Negley 46 degrees GEMUSE R Negley -15 degrees GEMUSE T Negley 28 degrees GEMUSE ECG Interpretation Sinus tachycardia Minimal voltage criteria for LVH, may be normal variant ( R in aVL ) No previous ECGs available Confirmed by MILANA ESPARZA ([id number]) on 12/04/2024 6:55:43 AM GEMUSE 12/03/2024 9:37 PM EDT 12/04/2024 6:55 AM EDT Jesús Arce MD ECG ORDERABLES Final Result GEMUSE * XR Chest 1 View (12/03/2024 9:34 PM EDT) Anatomical Region Laterality Modality Body Radiographic Sarahi ging 12/04/2024 9:26 AM EDT Impressions 12/04/2024 9:26 AM EDT FINDINGS/IMPRESSION: Normal heart size without congestive heart failure. No consolidation or effusion. -------- FINAL REPORT -------- Dictated By: Isatu Rodriguez Dictated Date: 12/04/2024 09:26 ET Assigned Physician: Isatu Rodriguez Reviewed and Electronically Signed By: Isatu Rodriguez Signed Date: 12/04/2024 09:26 ET Workstation ID: [id number] Transcribed By: Self Edit Transcribed Date: 12/04/2024 09:26 ET Narrative 12/04/2024 9:26 AM EDT XR CHEST 1 VIEW INDICATION: LOC TECHNIQUE: XR CHEST 1 VIEW COMPARISON: No priors available. Procedure Note Isatu Rodriguez MD - 12/04/2024 XR CHEST 1 VIEW INDICATION: LOC TECHNIQUE: XR CHEST 1 VIEW COMPARISON: No priors available. IMPRESSION: FINDINGS/IMPRESSION: Normal heart size without congestive heart failure.No consolidation or effusion. -------- FINAL REPORT -------- Dictated By: Isatu Rodriguez Dictated Date: 12/04/2024 09:26 ET Assigned Physician: Isatu Rodriguez Reviewed and Electronically Signed By: Isatu Rodriguez Signed Date: 12/04/2024 09:26 ET Workstation ID: [id number] Transcribed By: Self Edit Transcribed Date: 12/04/2024 09:26 ET Jesús Arce MD IMG XR PROCEDURES Final Result * XR Fluoro Up To 1 Hour (11/08/2024 1:14 PM EDT) Anatomical Region Laterality Modality Body Radio Fluoroscop y 11/09/2024 12:0 4 PM EDT Narrative 11/09/2024 12:04 PM EDT Fluoroscopic spot radiographs obtained during a lumbosacral pain management procedure are submitted. No radiologist consultation was requested or provided during this procedure and there is no radiologist professional charge. This report is generated for documentation purposes only. The dose for this procedure was 9.47 mGy. PQRI CPT II G9500 -------- FINAL REPORT -------- Dictated By: Jarocho Robbins Dictated Date: 11/09/2024 12:04 ET Assigned Physician: Jarocho Robbins Reviewed and Electronically Signed By: Jarocho Robbins Signed Date: 11/09/2024 12:04 ET Workstation ID: [id number] Transcribed By: Self Edit Transcribed Date: 11/09/2024 12:04 ET Procedure Note Jarocho Robbins MD - 11/09/2024 Fluoroscopic spot radiographs obtained during a lumbosacral painmanagement procedure are submitted. No radiologist consultation wasrequested or provided during this procedure and there is no radiologistprofessional charge. This report is generated for documentation purposesonly. The dose for this procedure was 9.47 mGy. PQRI CPT II G9500 -------- FINAL REPORT -------- Dictated By: Jarocho Robbins Dictated Date: 11/09/2024 12:04 ET Assigned Physician: Jarocho Robbins Reviewed and Electronically Signed By: Jarocho Robbins Signed Date: 11/09/2024 12:04 ET Workstation ID: [id number] Transcribed By: Self Edit Transcribed Date: 11/09/2024 12:04 ET us Rajendra Little MD IMG FLUOROSCOPY PROCEDURES Fin al Result * Injection epidural caudal with guidance (11/08/2024 12:00 PM EDT) Narrative Rajendra Little MD - 11/08/2024 12:00 PM EDT Rajendra Little MD 11/08/2024 1:09 PM [facility] [place] [address] Patient: Lillian Rodriguez Date of Scheduled Surgery: 11/08/2024 PreOp Diagnosis: Post laminectomy syndrome Caudal catheter injection today. Surgeon: Sidney Household Appliance Repairer: None Specimens: No specimens collected during this procedure. Estimated Blood Loss: < 1 cc Anesthesia: IV Sedation-2mg Versed and 100mcg of fentanyl Lillian Rodriguez presents today for their 3rd Caudal Epidural Injection Guided with a Catheter. Informed consent, including a discussion of the risks, benefits, alternatives and potential complications was obtained. The patient was placed in the prone position and the gluteal cleft area was prepped and draped using Duraprep and using aseptic technique. Then 2% lidocaine was infiltrated intradermally and deeper overlying the sacral hiatus as identified by fluoroscopy. A 17G Touhy needle was inserted through the skin wheal and advanced slowly under fluorscopic guidance until the tip of the needle pierced the sacrococcygeal ligament and entered the caudal space. An epidural catheter was introduced through the needle and advanced under fluoroscopic guidance to the level of the left L5 nerve root, after which the catheter could not be advanced further. After negative aspiration, 3 ml's of M300 Isovue contrast was injected. Appropriate spread of contrast material within the epidural space in the usual distribution was observed. There was no intrathecal spread nor vascular uptake noted. After negative aspiration of heme or CSF, 80 mg of depomedrol and 4 ml of preservative free normal saline was injected slowly and incrementally. There was no paresthesia or pain on injection. The needle and the catheter were withdrawn after flushing. A Band-Aid was applied. Imaging has been recorded or stored. The attending physician was present for the sneed components of this procedure. If conscious sedation was performed; an independent nurse trained in conscious sedation continuously monitored the patient's vital signs from the time marked Procedure Start to the time marked Out Post Procedure. The patient tolerated the procedure without complications and was discharged in satisfactory condition with detailed post procedure instructions. Rajendra Little MD Rajendra Little MD ANESTHESIA ORDERABLES Final Re sult * Hepatitis C antibody (06/15/2024 3:26 PM EST) [facility] Hepatitis C Antibody Negative Negative LAB CHEMISTRY METHOD 06/15/2024 5:46 PM EST [facility] Blood Venous blood specimen / Unknown Venipuncture / Unknown 06/15/2024 3:26 PM EST 06/15/2024 4:10 PM EST [facility] LAB BLOOD ORDERABLES Fin al Result [facility] [address] [place] [address], * HIV 1,2 antibody, p24 antigen with reflex to differentiation (06/15/2024 3:26 PM EST) [facility] HIV Combo AB/AG Negative Negative LAB CHEMISTRY METHOD 06/15/2024 5:47 PM EST [facility] Blood Venous blood specimen / Unknown Venipuncture / Unknown 06/15/2024 3:26 PM EST 06/15/2024 4:10 PM EST [facility] - 06/15/2024 5:47 PM EST This assay is a 4th generation assay allowing for earlier detection of HIV infection by detecting the presence of the HIV-1 p24 antigen as well as the traditional antibodies to HIV type 1 (including group O) and type 2. Use of a 4th generation assay is the current CDC recommendation for HIV screening. us Nevin TREADWELL LAB BLOOD ORDERABLES Fin al Result [facility] [address] [place] [address], [place] [phone] * Lipid panel with reflex to direct LDL (06/15/2024 3:26 PM EST) Cholesterol 131 0 - 200 mg/dL LAB CHEMISTRY METHOD 06/15/2024 5:24 PM [facility] Triglycerides 141 0 - 150 mg/dL LAB CHEMISTRY METHOD 06/15/2024 5:24 PM [facility] HDL 46 >=40 mg/dL LAB CHEMISTRY METHOD 06/15/2024 5:24 PM [facility] LDL Calculated 57 0 - 100 mg/dL LAB CHEMISTRY METHOD 06/15/2024 5:24 PM [facility] VLDL Cholesterol Shahram 28.2 mg/dL LAB CHEMISTRY METHOD 06/15/2024 5:24 PM [facility] Non HDL Chol. (LDL+VLDL) 85 <145 mg/dL LAB CHEMISTRY METHOD 06/15/2024 5:24 PM [facility] Chol/HDL Ratio 2.8 0.0 - 4.4 LAB CHEMISTRY METHOD 06/15/2024 5:24 PM [facility] Blood Venous blood specimen / Unknown Venipuncture / Unknown 06/15/2024 3:26 PM EST 06/15/2024 4:10 PM EST [facility] LAB BLOOD ORDERABLES Fin al Result FERNANDA NAVARRETE NM ([facility]) [facility] [address] [place] [address], [place] [phone] * Colonoscopy (10/07/2019) HM Colonoscopy Abstracted, no interpretation Anatomical Region Laterality Modality Other Historical Provider MD HEALTH MAINTENANCE Final Result from Last 3 Months or Most Recently Relevant to Health Maintenance [place] [address] [facility] [employer] 

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
--- OUTSIDE RECORDS SUMMARY | 2025-01-28 17:01 | XMS_ITS | Clinical Summary ---
Author Organization [facility] Address [address] [place] [id number] Phone Care Team Providers Care Button Breaker Operator Name Role Phone Pcp, Not Required Primary Care Provider Unavaila ble Allergies Active Allergy Reactions Criticality Noted Date Comments Bee Pollen 05/14/2020 Pineapple 05/14/2020 Ratcliff 05/14/2020 Medications No known medications Social History Tobacco Use Types Packs/Day Years Used Date Smoking Tobacco: Former Cigarettes Q uit: 05/14/1997 Smokeless Tobacco: Never Alcohol Use Standard Drinks/Week Comments Not Currently 0 (1 standard drink = 0.6 oz pur e alcohol) Education Answer Date Recorded Are you interested in more education? Not on ryan e 08/09/2022 Are you concerned about learning? Not on file 08/09/2022 No 08/09/2022 No 08/09/2022 Digital Access Answer Date Recorded No 09/10/2022 No 09/10/2022 Reliable internet access at home? Not on file 09/10/2022 Device with a working camera? Not on file Sex and Gender Information Value Date Recorded Sex Assigned at Not on file Legal Sex Male 11:47 AM EST Gender Identity Not on file Sexual Orientation Not on file Last Filed Vital Signs Vital Sign Reading Time Taken Comments Blood Pressure 132/94 05/14/2020 12:06 PM EST Pulse 84 05/14/2020 12:06 PM EST Temperature 36.3 C (97.4 F) 05/14/2020 12:06 PM EST Respiratory Rate 16 05/14/2020 12:06 PM EST Oxygen Saturation 96% 05/14/2020 12:06 PM EST Inhaled Oxygen Concentration - - Weight 106.1 kg (234 lb) 05/14/2020 12:06 PM EST Height 181.6 cm (5' 11.5 ) 05/14/2020 12:[address] Body Mass Index 32.18 05/14/2020 12:06 PM EST Plan of Treatment Not on file Medical Devices Not on file Insurance INSURANCE Care Teams Button Breaker Operator Relationship Specialty Start Date End Date Pcp, Not Required [address] [place] [address] PCP - General 05/14/20 Additional Source Comments The information contained in this document represents components of the legal health record. It is not the complete legal health record.[facility]
--- OUTSIDE RECORDS SUMMARY | 2025-01-28 17:01 | XMS_ITS ---
Author Name [facility] Organization Unknown History of Medication Use Medication Directions Dispensed Refills Start Date End Date Stat Abilify 10 mg tablet Take 1 tablet every day by oral route. 5 completed aripiprazole 15 mg tablet TAKE 1 TABLET BY MOUTH EVERYDAY AT BEDTIME 5 completed cholecalciferol (vitamin D3) 1,250 mcg (50,000 unit) tablet Take 1 tablet every week by oral route. 5 completed doxepin 50 mg capsule Take 1 capsule every day by oral route. 5 completed doxycycline monohydrate 100 mg tablet TAKE 1 TABLET BY MOUTH TWICE A DAY FOR 14 DAYS 5 completed hydroxyzine HCl 50 mg tablet Take 1 tablet 4 times a day by oral route. 5 completed hydroxyzine pamoate 25 mg capsule TAKE 1 CAPSULE BY MOUTH EVERY NIGHT AT BEDTIME NEEDED. 5 completed hydroxyzine pamoate 50 mg capsule TAKE 1 CAPSULE BY MOUTH AT BEDTIME NEEDED FOR SLEEP 5 completed prazosin 5 completed prazosin 2 mg capsule TAKE 1 CAPSULE BY MOUTH EVERYDAY AT BEDTIME 5 completed sertraline 25 mg tablet TAKE 1 TABLET BY MOUTH EVERY DAY IN THE MORNING 5 completed sertraline 50 mg tablet Take 1 tablet every day by oral route. 5 completed aripiprazole 10 mg tablet TAKE 1 TABLET BY MOUTH EVERYDAY AT BEDTIME active clindamycin 1 % lotion APPLY TO THE SCALP, FACE EVERY DAY AFTER BPO WASH active doxycycline hyclate 100 mg capsule PLEASE SEE ATTACHED FOR DETAILED DIRECTIONS active doxycycline hyclate 100 mg tablet TAKE 1 TABLET TWICE A DAY WITH FOOD AND WATER. WEAR SUNSCREEN. active ergocalciferol (vitamin D2) 1,250 mcg (50,000 unit) capsule TAKE 1 CAPSULE (50,000 UNITS TOTAL) BY MOUTH ONCE WEEKLY active triamcinolone acetonide 0.1 % lotion APPLY TO SCALP 2X A DAY NEEDED FLARES, DECREASE TO EVERY DAY/EVERY OTHER DAY SYMPTOMS IMPROVE active Vitamin D3 active Allergies Allergen Reaction Severity Comment Documented Date Source Statu s BEE POLLEN [facility] Problems Problem Status Onset Date Problem Type Date of Resoluti on Source Bipolar disorder active 2024-03-26 ProblemAct C [facility] History of hypertension active 2024-03-[address] [facility] History of depression active 2024-03-[address] [facility] Anxiety active 2024-03-26 ProblemAct [facility] Vitamin D deficiency active 2024-03-26 ProblemAct [facility] Encounters Encounter Type Encounter Reason Primary Diagnosis Location Date Ambulatory [facility] 05/10/2024 Care Team Organization Name Specialty Phone Email Start Date End Da te [facility] [address] [facility] FLETCHER ESCALANTE Primary Care 02/19/2022 12/01/19 24
== END 2025-01-28 15:19 | disposition home or self-care (01) ==
LOC: HO.PMC 14:31
PROVIDERS: PCP Physician Assistant; Referring Provider Physician Assistant; Visit Provider Nurse Practitioner Family
DX: M96.1 Postlaminectomy syndrome, not elsewhere classified (principal); M54.16 Radiculopathy, lumbar region; G89.4 Chronic pain syndrome; M54.42 Lumbago with sciatica, left side; G89.29 Other chronic pain; M47.817 Spondylosis without myelopathy or radiculopathy, lumbosacral region
CPT/HCPCS: 99204

== ENCOUNTER → 2025-01-28 14:31 | Outpatient (BNVA) | payer OTHER, SELFPAY | PROVIDERS: PCP Physician Assistant; Referring Provider Physician Assistant; Visit Provider Nurse Practitioner Family | DX: M54.16 Radiculopathy, lumbar region (principal); M96.1 Postlaminectomy syndrome, not elsewhere classified; M54.42 Lumbago with sciatica, left side; G89.29 Other chronic pain; M47.817 Spondylosis without myelopathy or radiculopathy, lumbosacral region | CPT/HCPCS: 99202 ==